=== PATIENT | male | born 1955 | race Caucasian/White ===

== ENCOUNTER → 2024-07-17 14:09 | Outpatient (REF) | payer MEDICARE, OTHER, SELFPAY | LOC: HWRAD 14:09 | PROVIDERS: ATTENDING PHYSICIAN Family Medicine | DX: M54.42 Lumbago with sciatica, left side (principal) | CPT/HCPCS: 72110 ==

== ENCOUNTER 2024-08-23 14:56 | Outpatient (RCR) | payer MEDICARE, OTHER, SELFPAY | END 2024-08-23 23:59 | disposition home or self-care (01) | LOC: RPT 14:56 | PROVIDERS: ATTENDING PHYSICIAN Family Medicine | DX: M51.362 Other intervertebral disc degeneration, lumbar region with discogenic back pain and lower extremity pain (principal); Z73.6 Limitation of activities due to disability | CPT/HCPCS: 97110; 97162 ==

== ENCOUNTER → 2024-08-26 16:08 | Outpatient (REF) | payer MEDICARE, OTHER, SELFPAY | LOC: RAD 16:08 | PROVIDERS: ATTENDING PHYSICIAN Registered Nurse | DX: M79.89 Other specified soft tissue disorders (principal); R60.0 Localized edema | CPT/HCPCS: 93971 ==

== ENCOUNTER 2024-09-20 15:46 | Outpatient (RCR) | payer MEDICARE, OTHER, SELFPAY | END 2024-09-23 07:33 | disposition home or self-care (01) | LOC: RPT 15:46 | PROVIDERS: ATTENDING PHYSICIAN Family Medicine | DX: M51.362 Other intervertebral disc degeneration, lumbar region with discogenic back pain and lower extremity pain (principal); Z73.6 Limitation of activities due to disability | CPT/HCPCS: 97110 ==

== ENCOUNTER → 2025-01-06 08:37 | Outpatient (REF) | payer MEDICARE, OTHER, SELFPAY | LOC: MRI 08:37 | PROVIDERS: ATTENDING PHYSICIAN Specialist; FAMILY PHYSICIAN Family Medicine | DX: M54.50 Low back pain, unspecified (principal); M25.552 Pain in left hip | CPT/HCPCS: 72148; 73721 ==

== ENCOUNTER 2025-03-11 15:08 | Emergency (ER) | payer MEDICARE, OTHER, SELFPAY ==
[2025-03-11 15:11] VITALS: BP 149/80
[2025-03-11] MEDS: NSS 1000 IV (17:34)
[2025-03-11] MEDS: DILAUDID 0.5 MG IV (17:36)
--- NOTE | 2025-03-11 17:40 | ED.GENMED ---
History of Present Illness
<Meg Slade PA-C - Last Filed: 03/12/25 01:30>
General
Chief Complaint: Bowel Problem
Source: patient
Exam Limitations: none
Time Seen by Provider: 03/11/25 17:09
Nursing documentation reviewed up to this point in time: agreed with
History of Present Illness
History of Present Illness:
Patient is a 69-year-old male who presents to the emergency department for evaluation of rectal pain. Patient states symptoms been ongoing for the past 3 weeks however have progressively worsening. He initially describes having rectal pain
following bowel movements although now is having relatively constant pain. He describes it as a sharp, and bearable pain in his rectum. He states that his bowel movements have been relatively normal meaning no constipation or diarrhea although he
does feel as if he is incompletely emptying. Patient denies noticing any bloody or dark stools.
He has stopped eating as of yesterday because he is afraid of having bowel movements as it causes a significant amount of pain.
Patient denies any fevers or chills. No abdominal pain, nausea, or vomiting. He denies any dysuria or other urinary symptoms.
Of note�patient has been treated in the past for hemorrhoids and anal fissures although states the symptoms feel very different. He did contact his colorectal provider who was unable to get him an appointment until March 29.
Past History
<Meg Slade PA-C - Last Filed: 03/12/25 01:30>
Past History
ED Past Medical History: None
ED Past Surgical History: None
Social History
Tobacco: Non-smoker
Personal:
Living: with family
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
Review of Systems
<Meg Slade PA-C - Last Filed: 03/12/25 01:30>
Review of Systems
Allergies reviewed?: Yes
All Other Systems: ROS reviewed and negative except as documented in HPI and ROS
Phy Exam
<Meg Slade PA-C - Last Filed: 03/12/25 01:30>
Physical Exam
Physical Exam:
Vitals: Mildly hypertensive, otherwise vital signs stable. Afebrile
General: Patient is well appearing, no acute distress. Nontoxic
Skin: Warm and dry, no rashes or lesions
Head: Normocephalic, atraumatic
Eyes: Sclera nonicteric.
Throat: Protecting airway
Neck: Normal ROM, no cervical spine tenderness, no meningismus
Cardiac: Regular rate and rhythm, no murmurs.
Pulm: Normal respiratory effort, no wheezes, rales, rhonchi heard on exam
.
Abdomen: Abdomen soft. Very minimal tenderness in left lower abdomen without rebound tenderness or guarding.
Rectal: External hemorrhoids visualized. No fluctuance, erythema, or identifiable abscess in perirectal area. No fecal impaction. Significant tenderness on exam.
Extremities: No evidence of cyanosis or edema
Neuro: AAOx3. Grossly intact.
Psychiatric: Normal affect.
Course
<Meg Slade PA-C - Last Filed: 03/12/25 01:30>
Orders/Labs/Results
Orders:
Orders
03/11/25 17:28
0.9% Sodium Chloride 1000 ml [Nss] 1,000 ml IV BOLUS
HYDROmorphone [Dilaudid] 0.5 mg IV NOW STA
03/11/25 17:29
CT Abd/pelvis W Iv Cont Urgent
Comment:
Reason For Exam: Rectal pain
03/11/25 17:31
Basic Metabolic Panel Urgent
Complete Blood Count/With Diff Urgent
Lipase Urgent
03/11/25 18:28
Potassium Urgent
Abnormal Lab Results
03/11/25
17:31
RBC 4.36 L 10^6/uL
(4.70-6.10)
Hct 37.8 L %
(39.0-52.0)
MPV 11.7 H fL
(7.4-10.4)
Chloride 108 H mmol/L
(98-107)
BUN 21 H mg/dl
(9-20)
03/11/25 17:31
03/11/25 18:28
Vital Signs
Initial and Last Documented VS:
Initial Vital Signs
Temp Pulse Resp BP Pulse Ox
98.1 F 55 16 149/80 97
03/11/25 15:11 03/11/25 15:11 03/11/25 15:11 03/11/25 15:11 03/11/25 15:11
Last Documented Vital Signs
Temp Pulse Resp BP Pulse Ox
98.1 F 55 16 149/80 97
03/11/25 15:11 03/11/25 15:11 03/11/25 15:11 03/11/25 15:11 03/11/25 17:53
<Damir Stewart, DO - Last Filed: 03/11/25 20:52>
Orders/Labs/Results
Orders:
Orders
03/11/25 17:28
0.9% Sodium Chloride 1000 ml [Nss] 1,000 ml IV BOLUS
HYDROmorphone [Dilaudid] 0.5 mg IV NOW STA
03/11/25 17:29
CT Abd/pelvis W Iv Cont Urgent
Comment:
Reason For Exam: Rectal pain
03/11/25 17:31
Basic Metabolic Panel Urgent
Complete Blood Count/With Diff Urgent
Lipase Urgent
03/11/25 18:28
Potassium Urgent
Abnormal Lab Results
03/11/25
17:31
RBC 4.36 L 10^6/uL
(4.70-6.10)
Hct 37.8 L %
(39.0-52.0)
MPV 11.7 H fL
(7.4-10.4)
Chloride 108 H mmol/L
(98-107)
BUN 21 H mg/dl
(9-20)
03/11/25 17:31
03/11/25 18:28
Vital Signs
Initial and Last Documented VS:
Initial Vital Signs
Temp Pulse Resp BP Pulse Ox
98.1 F 55 16 149/80 97
03/11/25 15:11 03/11/25 15:11 03/11/25 15:11 03/11/25 15:11 03/11/25 15:11
Last Documented Vital Signs
Temp Pulse Resp BP Pulse Ox
98.1 F 55 16 149/80 97
03/11/25 15:11 03/11/25 15:11 03/11/25 15:11 03/11/25 15:11 03/11/25 17:53
<Meg Slade PA-C - Last Filed: 03/12/25 01:30>
MDM/Problems Addressed
Differential Diagnosis Includes:
Not limited to: External hemorrhoids, prolapsed hemorrhoid, anal fissure, proctitis, perirectal abscess, fecal impaction, malignancy, etc.
MDM/Problems Addressed:
69-year-old male presenting with significant rectal discomfort worsening over the past few weeks. He has been undergoing treatment for hemorrhoids and anal fissures however symptoms progressing. No associated fever, chills, vomiting, abdominal
pain. No obvious diarrhea or constipation. Patient mildly hypertensive with otherwise stable vital signs on arrival. On exam�patient without any abdominal tenderness. Rectal exam reveals external hemorrhoids however no evidence of thrombosis.
No obvious anal fissure or evidence of perirectal abscess. No fecal impaction. Soft brown stool in vault which was heme positive which I suspect to be likely secondary to internal hemorrhoids. Pain likely secondary to external hemorrhoids however
given significant levels of discomfort and heme positive stool�will plan for lab work, CT scan abdomen/pelvis. Will treat pain.
Update: Labs reviewed. No clinically significant abnormalities. Hemoglobin stable at 13.4 -not concern for significant GI bleeding. CT scan without any acute abnormalities in abdomen/pelvis. Feel symptoms likely secondary to external
hemorrhoids. No evidence of thrombosis on exam. Feel stable for discharge home with colorectal follow-up outpatient. Advised sitz bath's, Anusol suppositories, pain management as needed. Strict return precautions discussed. Patient comfortable
with plan.
Chronic conditions affecting care:
History of hemorrhoids and anal fissures
Acute Exacerbation and/or Progression of Chronic Illness:
N/A
<Meg Slade PA-C - Last Filed: 03/12/25 01:30>
*Radiology
Radiology exam reviewed: radiology read reviewed
*Pulse Oximetry
SaO2: 97
Oxygen Mode of Delivery: Room air
Patient hypoxic: no
*EKG
Interpreted by ED Provider?: NA
*Barrel Centerer Interpretation
Rate: Barrel Centerer- N/A
*Critical Care Note
Total Time (30-74mins, 75-104mins- exclusive of procedures): Not Applicable
ED Attending Note
<Meg Slade PA-C - Last Filed: 03/12/25 01:30>
-
Portions of this chart may have been created with voice recognition software.� Occasional wrong word or��sound alike� substitutions may have occurred due to the inherent limitations of voice recognition software.
<Damir Stewart DO - Last Filed: 03/11/25 20:52>
ED Attending Note
Patient seen and examined by attending physician: Yes
I performed the substantive portion of visit, reviewed & personally made and approve the management plan that is documented in note by myself or AYALA.: Yes
ED Attending Note:
I have seen and evaluated the patient with a [id number] encounter. I have spoken to the advance practicer provider and involved in the medical history, the physical exam, medical decision making.
Evaluation and management service: agree unless noted differently below.
Results interpretation: agree unless noted differently below.
Focused HPI: 69-year-old male presenting with rectal pain. Does have a history of hemorrhoids
Physical exam: External hemorrhoids noted. No rectal fissure noted. No thrombosis noted
Medical Decision Making: Discussed rectal steroids and stool softeners and sitz bath. Patient comfortable follow-up with colorectal
Discharge Plan
Departure
Patient Disposition: Home (Routine Discharge)
Date of Disposition: 03/11/25
Time of Disposition: 20:33
Patient with high blood pressure during this ER visit?: Yes
Condition: Good
Covid-19: Not Applicable
Discharge Problem:
External hemorrhoids
Instructions: Hemorrhoids - ED discharge instructions
Prescriptions:
New
hydrocortisone acetate [Anusol-HC] 25 mg suppository
25 mg NE BID Qty: 24 0RF
Rx Instructions:
after bowel movement
No Action
oxycodone-acetaminophen 5 MG/325 MG tablet
1 tab PO Q4HPRN PRN (Reason: pain) Qty: 20 0RF
hydrocodone-acetaminophen 1 TABLET tablet
1 tab PO Q4HPRN PRN (Reason: pain) Qty: 15 0RF
Referrals:
Elver Sheppard MD [Active, ColoRectal] - Next open appointment
Leslie Shen MD [Family Provider, Family Practice] - Next open appointment
Activity Restrictions/Additional Instructions:
RETURN TO THE EMERGENCY DEPARTMENT WITH ANY INTRACTABLE PAIN, FEVER, CHILLS, VOMITING, ABDOMINAL PAIN, WORSENING IN CURRENT SYMPTOMS, OR ANY OTHER CONCERNS
-As discussed�your lab work and CT scan showed no acute abnormalities today. Your symptoms are likely secondary to your external hemorrhoids. Please continue to perform sitz bath and use stool softeners to reduce any straining. A prescription for
suppository 7 sent to your pharmacy which you can use twice a day after bowel movements.
- It is important to stay well-hydrated.
- Follow-up with colorectal for further evaluation and management
Monitor your symptoms closely and return to the emergency department with any acute worsening/new symptoms or any other concerns
Interventions
Interventions:
*Risk Screen - Suicide Last Done: 03/11/25 15:12
*General Assessment Last Done: 03/11/25 17:53
*Neglect/Abuse Screening Last Done: 03/11/25 15:12
*ED- Fall Risk Assessment Last Done: 03/11/25 17:53
*ED COVID-19 Vaccine History Last Done: 03/11/25 17:53
*Nursing Disposition Last Done: 03/11/25 20:51
OU-Jltsmv-Hskfinlioe Assessment Last Done: 03/11/25 17:53
Discharge Date and Time
Discharge Date/Time: 03/11/25 20:58
Print Language: LAO
[2025-03-11 17:41] LABS: Hematocrit 37.8 % (39.0-52.0); Hemoglobin 13.4 g/dL (13.0-18.0); Mean Corp Hgb Conc. 35.4 g/dL (33.0-37.0); Mean Corpuscular Volume 86.7 fL (80.0-94.0); Nucleated Red Blood Cells % 0 % (-); Platelet Count 151 10^3/uL (130-400); Red Cell Dist. Width 13.1 % (11.5-14.5)
[2025-03-11 18:08] LABS: Blood Urea Nitrogen 21 mg/dl (9-20); Calcium 9.9 mg/dl (8.4-10.2); Carbon Dioxide 29 mmol/L (22-30); Chloride 108 mmol/L (98-107); Glucose 94 mg/dl (70-99); Lipase 63 U/L (23-300); Sodium 140 mmol/L (135-145); eGFR > 60.00
[2025-03-11 19:11] LABS: Potassium 4.1 mmol/L (3.5-5.1)
== END 2025-03-11 20:58 | disposition home or self-care (01) ==
LOC: EMR 15:08
PROVIDERS: Physician Assistant; EMERGENCY PHYSICIAN Student in an Organized Health Care Education/Training Program; FAMILY PHYSICIAN Family Medicine
DX: K64.4 Residual hemorrhoidal skin tags (principal); K60.2 Anal fissure, unspecified; K62.89 Other specified diseases of anus and rectum; Z88.1 Allergy status to other antibiotic agents
CPT/HCPCS: 99284; 96361 ×2; 96374; 74177; 80048; 83690; 84132; 85025; Q9967

== ENCOUNTER 2025-03-24 12:59 | Outpatient (RCR) | payer MEDICARE, OTHER, SELFPAY | END 2025-03-24 23:59 | disposition home or self-care (01) | LOC: RPT 12:59 | PROVIDERS: ATTENDING PHYSICIAN Pain Medicine Interventional Pain Medicine; FAMILY PHYSICIAN Family Medicine | DX: M54.16 Radiculopathy, lumbar region (principal); Z73.6 Limitation of activities due to disability; M79.605 Pain in left leg; M62.81 Muscle weakness (generalized) | CPT/HCPCS: 97010; 97110; 97112; 97140; 97162 ==

== ENCOUNTER 2025-03-31 14:26 | Day surgery (SDC) | payer MEDICARE, OTHER, SELFPAY ==
[2025-03-31] VITALS (10 sets, daily range): BP systolic 130–150; BP diastolic 70–82; BMI 28.3
[2025-03-31] MEDS: NORMOSOL-R/PLASMALYTE-A 1000 IV (14:22)
[2025-03-31] MEDS: DILAUDID 0.5 MG IV (16:47)
== END 2025-03-31 18:21 | disposition home or self-care (01) ==
LOC: SDS 14:26
PROVIDERS: ATTENDING PHYSICIAN Surgery
DX: K60.2 Anal fissure, unspecified (principal); K64.4 Residual hemorrhoidal skin tags
CPT/HCPCS: 46080; 73030; 88304; 93005

== ENCOUNTER 2025-04-25 06:16 | Day surgery (SDC) | payer MEDICARE, OTHER, SELFPAY | END 2025-04-25 13:57 | disposition home or self-care (01) | LOC: GI 06:16 | PROVIDERS: ATTENDING PHYSICIAN Internal Medicine Gastroenterology; FAMILY PHYSICIAN Family Medicine | DX: R12 Heartburn (principal); K44.9 Diaphragmatic hernia without obstruction or gangrene | CPT/HCPCS: 43235 ==

== ENCOUNTER 2025-05-06 14:55 | Outpatient (RCR) | payer MEDICARE, OTHER, SELFPAY | END 2025-05-06 23:59 | disposition home or self-care (01) | LOC: RPT 14:55 | PROVIDERS: ATTENDING PHYSICIAN Pain Medicine Interventional Pain Medicine; FAMILY PHYSICIAN Family Medicine | DX: M54.16 Radiculopathy, lumbar region (principal); Z73.6 Limitation of activities due to disability; M79.605 Pain in left leg; M62.81 Muscle weakness (generalized) | CPT/HCPCS: 76882; 97010; 97110; 97112 ==

== ENCOUNTER 2025-05-21 16:36 | Outpatient (RCR) | payer MEDICARE, OTHER, SELFPAY | END 2025-05-21 23:59 | disposition home or self-care (01) | LOC: RPT 16:36 | PROVIDERS: ATTENDING PHYSICIAN Pain Medicine Interventional Pain Medicine; FAMILY PHYSICIAN Family Medicine | DX: M54.16 Radiculopathy, lumbar region (principal); Z73.6 Limitation of activities due to disability; M79.605 Pain in left leg; M62.81 Muscle weakness (generalized) | CPT/HCPCS: 97110 ==